=== PATIENT | male | born 1955 | race Caucasian/White ===

== ENCOUNTER 2024-11-17 06:33 | Emergency (ER) | payer BC, MEDICARE ==
[~2024-11-17] VITALS: Ht 172.7 cm; Wt 93.0 kg
[~2024-11-17 06:33] MED LIST: NO HOME MEDS
[2024-11-17] MEDS ORDERED: IBUP-1984 PO (09:44)
[2024-11-17] MEDS ORDERED: OXYC-145 PO (09:44)
[2024-11-17] MEDS: ketorolac trometh 15mg/ml vial 15 MG/ML ML IM ONE (09:59)
[2024-11-17] MEDS: oxyCODONE/APAP 5-325mg tablet PO ONE (09:59)
[2024-11-17 10:36] VITALS: BP 153/84; PULSE 64; RESP 15; TEMP 98; O2SAT 97
== END 2024-11-17 10:30 | disposition home or self-care (01) ==
LOC: ER 06:33
DX: M70.41 Prepatellar bursitis, right knee (principal)
CPT/HCPCS: 29505; 73564; 96372; 99283; J1885